=== PATIENT | female | born 1990 | race Caucasian/White ===

== ENCOUNTER 2019-06-01 08:45 | Emergency (ER) | payer OTHER ==
[~2019-06-01] VITALS: Ht 157.5 cm; Wt 70.3 kg
[~2019-06-01 08:45] MED LIST: ACET500 PO; ALBU90OI INH; ALPR.5 PO; CEPH500 PO; Citalopram HBr20 MG PO; Colace100 MG PO; Cortisporin Ear10 ML LEFTEAR; DIPATRL; HYDPAM25; HYDPAM25 PO; IBUP800 PO; LORA10 PO; MULVITMINE PO; OMEP20ER PO; OXYACE5T PO; OXYC1TAB11 PO; PENVK500 PO; PREN-16 PO; PROACE100 PO; PROCODE120 PO; Percocet 5-3251 EACH PO; RANI150 PO; [UNRECOGNIZED DRUG - OTHER] PO; [UNRECOGNIZED DRUG - REMARK]
[2019-06-01] MEDS ORDERED: ARNUITY ELLIPT50 MCG INH (09:35)
[2019-06-01] MEDS ORDERED: ONDA4ODT MM (09:39)
== END 2019-06-01 09:57 | disposition home or self-care (01) ==
LOC: ER 08:45
DX: K22.6 Gastro-esophageal laceration-hemorrhage syndrome (principal); Z88.5 Allergy status to narcotic agent; Z79.899 Other long term (current) drug therapy
CPT/HCPCS: 36415; 99283

== ENCOUNTER 2019-11-24 12:07 | Emergency (ER) | payer OTHER ==
[~2019-11-24] VITALS: Ht 157.5 cm; Wt 68.0 kg
[~2019-11-24 12:07] MED LIST changes: +ARNUITY ELLIPT50 MCG INH; +ONDA4ODT MM
[2019-11-24] MEDS ORDERED: ALBU90OI INH ×2 (12:20→12:47)
[2019-11-24] MEDS ORDERED: Prednisone20 MG PO (13:29)
== END 2019-11-24 13:37 | disposition home or self-care (01) ==
LOC: ER 12:07
DX: J45.901 Unspecified asthma with (acute) exacerbation (principal); F41.9 Anxiety disorder, unspecified; F32.9 Major depressive disorder, single episode, unspecified; F17.210 Nicotine dependence, cigarettes, uncomplicated; Z79.899 Other long term (current) drug therapy
CPT/HCPCS: 71046; 99283-25; J7512

== ENCOUNTER 2020-08-28 13:13 | Emergency (ER) | payer OTHER ==
[~2020-08-28] VITALS: Ht 157.5 cm; Wt 63.5 kg
[~2020-08-28 13:13] MED LIST changes: +Prednisone20 MG PO
[2020-08-28 14:49] LABS: BASOPHILS ABSOLUTE AUTO 0.11 K/mm3 (0.00-0.23); BASOPHILS PERCENT AUTO 1 % (0-2); EOSINOPHILS ABSOLUTE AUTO 0.41 K/mm3 (0.00-0.68); EOSINOPHILS PERCENT AUTO 5 % (0-6); Hematocrit 45.5 % (33.0-51.0); Hemoglobin 15.1 g/dL (11.5-16.0); IMMATURE GRAN ABSOLUTE AUTO 0.01 K/mm3 (0.00-0.10); IMMATURE GRAN PERCENT AUTO 0 % (0-1); LYMPHOCYTES ABSOLUTE AUTO 2.34 K/mm3 (0.84-5.20); LYMPHOCYTES PERCENT AUTO 28 % (21-46); MONOCYTES PERCENT AUTO 6 % (4-13); Mean Corpuscular HGB Conc 33.2 g/dL (31.5-36.5); Mean Corpuscular Volume 100 fL (80-100); Mean Platelet Volume 11.6 fL (9.1-12.4); NEUTROPHILS ABSOLUTE AUTO 4.92 K/mm3 (1.96-9.15); NEUTROPHILS PERCENT AUTO 60 % (41-73); Platelet Count 204 K/mm3 (150-400); RDW Coefficient Variation 11.7 % (11.7-14.2); RDW Standard Deviation 42.7 fL (35.1-46.3); Red Blood Cell Count 4.57 M/mm3 (3.80-5.20); White Blood Cell Count 8.29 K/mm3 (4.00-11.30)
[2020-08-28 14:52] LABS: Source, Urine Clean Catch
[2020-08-28 14:54] LABS: Appearance, Urine Clear (Clear); Bilirubin, Urine Neg (Neg); Blood, Urine Neg (Neg); Color, Urine Amber (P-Yellow); Glucose Qualitative, Urine Neg (Neg); Ketones, Urine 1+ (Neg); Leukocyte Esterase, Urine 1+ (Neg); Nitrite, Urine Neg (Neg); Protein, Urine 1+ (Neg); Urobilinogen, Urine NORM (Normal)
[2020-08-28 15:07] LABS: Alanine Aminotransfer (ALT/SGP 18 U/L (12-78); Albumin/Globulin Ratio 1.1 (0.8-1.8); Alk Phos 71 U/L (50-136); Anion Gap 7 mmol/L (6-16); Aspartate Aminotrans (AST/SGOT 23 U/L (12-37); Bilirubin, Total 0.5 mg/dL (0.1-1.0); Blood Urea Nitrogen 6 mg/dL (8-24); CO2, Blood 27 mmol/L (21-32); Calcium, Blood 8.7 mg/dL (8.5-10.1); Chloride, Blood 105 mmol/L (98-108); Creatinine, Blood 0.55 mg/dL (0.40-1.00); Globulin, Blood 3.7 g/dL (2.2-4.0); Glomerular Filtration Rate >60 (60-); Glucose, Blood 83 mg/dL (70-99); Potassium, Blood 3.7 mmol/L (3.5-5.5); Sodium, Blood 139 mmol/L (136-145); Total Protein, Blood 7.7 g/dL (6.4-8.2)
[2020-08-28 15:12] LABS: Red Blood Cells, Urine Not Seen /hpf (0-2); Squamous Epithelial Cells Mod /hpf (Few); White Blood Cells, Urine 0-2 /hpf (0-5)
[2020-08-28 15:13] LABS: Bacteria Few /hpf; Mucus Mod (0-Heavy)
[2020-08-28] MEDS ORDERED: ONDA4ODT MM (16:15)
== END 2020-08-28 16:36 | disposition home or self-care (01) ==
LOC: ER 13:13
PROVIDERS: Physician Assistant
DX: K92.0 Hematemesis (principal); J45.909 Unspecified asthma, uncomplicated; F17.210 Nicotine dependence, cigarettes, uncomplicated; Z79.52 Long term (current) use of systemic steroids; Z79.899 Other long term (current) drug therapy
CPT/HCPCS: 36415; 71046; 80053; 81001; 85025; 86850; 86900; 86901; 87086; 96374; 96375; 99285-25; C9113; J2405

== ENCOUNTER 2021-10-29 08:34 | Emergency (ER) | payer OTHER ==
[~2021-10-29] VITALS: Ht 157.5 cm; Wt 65.8 kg
== END 2021-10-29 09:34 | disposition left against medical advice (07) ==
LOC: ER 08:34
DX: Z53.21 Procedure and treatment not carried out due to patient leaving prior to being seen by health care provider (principal)
CPT/HCPCS: A9270